=== PATIENT | female | born 1940 | race American Indian/Alaskan Native ===

== ENCOUNTER 2019-07-10 14:42 | Outpatient (CLI) | payer MEDICARE | END 2019-07-10 14:43 | disposition home or self-care (01) | LOC: LABHHL 14:42 | PROVIDERS: ATTEND Surgery | DX: N63.20 Unspecified lump in the left breast, unspecified quadrant (principal); C50.412 Malignant neoplasm of upper-outer quadrant of left female breast | CPT/HCPCS: 88305; 88341; 88342 ==

== ENCOUNTER 2019-09-09 08:57 | Day surgery (SDC) | payer MEDICARE ==
[2019-09-07 11:04] LABS: Hematocrit 34.6 % (30.3-42.9); Hemoglobin 11.3 gm/dl (10.1-14.3); Mean Corpuscular HGB Conc 33 % (30-34); Mean Corpuscular Volume 96 fl (79-97); Platelet Count 149 K/mm3 (140-440); Red Blood Count 3.61 M/mm3 (3.65-5.03)
--- NOTE | 2019-09-07 11:56 | Anesthesia Consultation ---
Anesthesia Consult and Med Hx Date of service: 09/09/19 - Airway Anesthetic Teeth Evaluation: Chipped, Crowns ROM Head & Neck: Adequate Mental/Hyoid Distance: Adequate Mallampati Class: Class II Intubation Access Assessment: Good - Pre-Operative Health Status ASA Pre-Surgery Classification: ASA2 Proposed Anesthetic Plan: General Nerve Block: PEC - Pulmonary Hx Smoking: Yes (FORMER) - Cardiovascular System Hx Hypertension: Yes Hx Cardia Arrhythmia: Yes (SVT, tachy) Hx Valvular Heart Disease: Yes (MVP) Hx Heart Murmur: Yes - Central Nervous System Hx Back Pain: Yes - Other Systems Hx Cancer: Yes
[2019-09-07 12:45] LABS: Anisocytosis 1+; Basophils % (Manual) 0 % (0.0-1.8); Eosinophils % (Manual) 0 % (0.0-4.3); Large Platelets Few; Platelet Estimate Consistent w Auto; Total Cells Counted 100
--- NOTE | 2019-09-09 08:55 | Anesthesia Day of Surgery ---
Anesthesia Day of Surgery - Day of Surgery Patient Examined: Yes Patient H&P Reviewed: Yes Patient is NPO: Yes
[~2019-09-09 08:57] MED LIST: ACETAMINOPHEN 325 MG TAB PO ONE; HYDROmorphone 1 MG/1 ML INJ IV PRN; MAGNESIUM OXIDE 400 MG TAB PO ONE; ONDANSETRON 4 MG/2 ML INJ IV PRN; ceFAZolin/Water 2 GM/20 ML 2 GM/20 ML SYRINGE IV NR; fentaNYL 100 MCG/2 ML INJ IV ONE
[2019-09-09] MEDS ORDERED: BUPIVACAINE-EPINEPHRINE/PF 0.25%-1:200,000 (30 ML) VIAL INFILTRATI ONE (08:59)
[2019-09-09] MEDS ORDERED: CELECOXIB 200 MG CAP PO NR (09:00)
[2019-09-09] MEDS ORDERED: LACTATED RINGERS 1,000 ML IV SCH (09:00)
[2019-09-09] MEDS ORDERED: MIDAZOLAM 2 MG/2 ML INJ IV NR ×2 (09:00→12:20)
[2019-09-09] MEDS ORDERED: SODIUM CHLORIDE P/F VIAL 10 ML 10 ML ONE (12:02)
[2019-09-09] MEDS ORDERED: METHYLENE BLUE 50 MG/10 ML AMP ONE (12:03)
[2019-09-09] MEDS ORDERED: HYDROmorphone 1 MG/1 ML INJ ONE (12:44)
[2019-09-09] MEDS ORDERED: propofoL 200 MG/20 ML VIAL IV ONE (12:44)
[2019-09-09] MEDS ORDERED: ROCURONIUM 50 MG/5 ML INJ IV ONE (12:44)
[2019-09-09] MEDS ORDERED: LIDOCAINE MPF (2%) 20 MG/1 ML VIAL 5 ML ONE (12:44)
[2019-09-09] MEDS ORDERED: dexAMETHasone 20 MG/5 ML VIAL ONE (12:45)
[2019-09-09] MEDS ORDERED: ONDANSETRON 4 MG/2 ML INJ ONE (12:45)
[2019-09-09] MEDS ORDERED: GLYCOPYRROLATE 0.4 MG/2 ML INJ ONE (13:00)
[2019-09-09] MEDS ORDERED: SODIUM CHLORIDE 0.9% IRR 1,500 ML BOTTLE IR ONE (14:25)
[2019-09-09] MEDS ORDERED: METHYLENE BLUE 50 MG/10 ML AMP IRRIGATION ONE (14:26)
[2019-09-09] MEDS ORDERED: SODIUM CHLORIDE 0.9% P/F 10 ML VIAL INFILTRATI ONE (14:26)
[2019-09-09] MEDS ORDERED: LACTATED RINGERS 1,000 ML ONE (15:18)
--- NOTE | 2019-09-09 15:20 | Mammography Report ---
SPECIMEN RADIOGRAPH LEFT BREAST INDICATION: POST EXC BX. COMPARISON: 06/18/2019 [facility] mammogram FINDINGS: A mass with ill-defined margins and an adjacent biopsy clip is identified within the specimen. IMPRESSION: 1. Excision of the known cancer.. Signer Name: Jacob Petty MD Signed: 09/09/2019 3:16 PM Workstation Name: [id number]
[2019-09-09] MEDS ORDERED: NEOSTIGMINE 10MG/10 ML INJ MDV ONE (15:50)
--- NOTE | 2019-09-09 16:05 | Short Stay Summary ---
Short Stay Documentation Date of service: 09/09/19 - History H&P: obtained from office - Allergies and Medications Current Medications: Allergies lisinopril Allergy (Verified 09/04/19 09:40) Shortness of Breath Dbhbdvu-Bhd-Fax Reductase Inhibitor Allergy (Verified 09/04/19 09:40) Shortness of Breath Home Medications Medication Instructions Recorded Confirmed Last Taken Type Irbesartan [Avapro] 150 mg PO DAILY 09/04/19 09/09/19 09/08/19 08:00 History HYDROcodone/APAP 5-325 [Brewer 1 each PO Q6HR PRN #20 tablet 09/09/19 Unknown Rx 5/325] Active Medications Celecoxib (Celebrex) 200 mg PO PREOP NR Stop: 09/09/19 23:00 Last Admin: 09/09/19 09:25 Dose: 200 mg Documented by: Hydromorphone HCl (Dilaudid) 0.5 mg IV Q10MIN PRN PRN Reason: Pain , Severe (7-10) Stop: 09/09/19 23:00 Cefazolin Sodium (Ancef/Sterile Water 2 Gm/20 Ml) 2 gm in 20 mls @ 80 mls/hr IV PREOP NR; Protocol Stop: 09/09/19 23:00 Lactated Ringer's (Lactated Ringers) 1,000 mls @ 100 mls/hr IV DIRECT NANI Last Admin: 09/09/19 09:50 Dose: 100 mls/hr Documented by: Midazolam HCl (Versed) 2 mg IV PREOP NR Stop: 09/09/19 23:59 Ondansetron HCl (Zofran) 4 mg IV ONCE PRN PRN Reason: Nausea And Vomiting Stop: 09/09/19 23:00 - Brief post op/procedure progress note Date of procedure: 09/09/19 Pre-op diagnosis: Left breast cancer of upper outer quadrant Post-op diagnosis: same Procedure: Left partial mastectomy with SLNB Anesthesia: GETA Findings: Left breast mass with clip present; x2 SLNs Surgeon: KARIN GOMES Estimated blood loss: minimal Pathology: list (left partial mastectomy; x2 SLNs) Specimen disposition: to lab Condition: stable - Disposition Condition at discharge: Good Disposition: DC- TO HOME OR SELFCARE Short Stay Discharge Plan Activity: other (no heavy lifting) Diet: regular Wound: keep clean and dry (no heavy lifting; may shower in 48 hours; wear breast binder) Follow up with: PRIMARY CAREMD [Primary Care Provider] - 7 Days KARIN GOMES MD [Staff Physician] - 7 Days Prescriptions: HYDROcodone/APAP 5-325 [Brewer 5/325] 1 each PO Q6HR PRN #20 tablet PRN Reason: Pain
--- NOTE | 2019-09-09 16:12 | Operative Report ---
Operative Report Operative Report: Operative Report: September 09, 2019 Preoperative diagnosis: Left breast cancer of the upper outer quadrant Postoperative diagnosis: Same Procedure: Left partial mastectomy of the upper outer quadrant and SLNB Surgeon: Evangelina Wilhelm MD Lamination Assembler: Bhavani Teague MD Anesthesia: General Findings: Left clip present within radiograph specimen; x2 SLNs Complications: None EBL: Minimal Disposition: PACU in good condition Indications for operative procedure: This is a 78 year old lady with newly diagnosed left breast cancer of the upper outer/inner quadrant, Stage II [id number] triple negative at the 2:00 position 5-7 cm FN. Recommendations are to proceed with breast conservation. She understands the possibility of adjuvant chemotherapy and she understands the role of adjuvant radiation therapy given breast conservation. She wished to proceed with the above procedure. Procedure in detail: Anesthesia placed left pectoral block. Patient was then taken to the operating room. Gen. anesthesia was administered. The left nipple was injected with radioisotope and 1 cc of methylene blue dye with 1 cc of saline. Left breast and axilla were prepped and draped in the normal sterile operative fashion. Timeout was performed. Gamma probe was inserted into the axilla. The area of hot spot was identified. A left axillary incision was made with a 15 blade knife with dissection taken down to the subcutaneous tissues. The axillary fascia was opened with the Bovie cautery. 2 SLNs were identified. All remaining counts were less than 10% of the highest count. Lymph node was sent to pathology for permanent processing. Hemostasis was obtained in the right axillary cavity. Axillary cavity was appropriately irrigated and suctioned. Hemostasis was noted. Axillary fascia was approximated and closed using interrupted 3-0 Vicryl and the skin brought together and closed using a running 4-0 Monocryl followed by skin affix. Attention was then taken towards the left breast. Left breast cancer mass was palpable at the 2:00 position 5-7 cm FN adn ultrasound was used to ant the area of incision. First began raising of the superior flap with dissection take down to the pectoralis muscle, followed by raising of the inferior flap, medial flap and lateral flap with all flaps taken down to the pectoralis muscle. The breast area of concern was appropriately removed posteriorly from the pectoralis muscle with the aid of the Bovie cautery. Ultrasound was then used and given concerns of mass to skin, anterior margin was revised with taking skin. Specimen was marked and then sent to pathology and radiology; radiograph specimen with clip present. Breast cavity was irrigated and hemostasis was obtained. The posterior deep breast tissues were approximated and closed using interrupted 3-0 Vicryl. The subcutaneous tissues were approximated and closed using interrupted 3-0 Vicryl followed by closing of the skin with a running 4-0 Monocryl and skin affix. The patient tolerated surgery very well and she was awaken from anesthesia without any complication and transported to PACU in good condition.
[2019-09-09 17:06] VITALS: BP 157/89
--- NOTE | 2019-09-09 20:21 | Post Anesthesia Evaluation ---
- Post Anesthesia Evaluation Patient Participated: Yes Airway Patent: Yes Stable Respiratory Function: Yes Nausea/Vomiting: No Temp > 96.8F: Yes Pain Manageable: Yes Adequeate Hydration: Yes Anesthesia Complications: No Block Receding Appropriately: Not Applicable Patient on Ventilator: No
== END 2019-09-09 17:50 | disposition home or self-care (01) ==
LOC: OR 08:57
PROVIDERS: ATTEND Surgery
DX: C50.412 Malignant neoplasm of upper-outer quadrant of left female breast (principal); I10 Essential (primary) hypertension; Z11.59 Encounter for screening for other viral diseases; Z90.710 Acquired absence of both cervix and uterus; Z98.890 Other specified postprocedural states; Z79.899 Other long term (current) drug therapy; Z87.891 Personal history of nicotine dependence; Z98.41 Cataract extraction status, right eye; Z98.42 Cataract extraction status, left eye; Z80.0 Family history of malignant neoplasm of digestive organs; Z88.8 Allergy status to other drugs, medicaments and biological substances
CPT/HCPCS: 19301; 36415; 38525; 38792; 76098; 78800; 85007; 85025; 88307; 88341; 88342; 88361; A9541; J0690; J1100; J1170; J2250; J2405; J2704; J2710; J3010; J7120; Q9968; U0003; 64450; 88305